=== PATIENT | male | born 1985 | race Caucasian/White ===

== ENCOUNTER 2016-09-06 07:38 | Emergency (ER) | payer OTHER ==
--- OUTSIDE RECORDS SUMMARY | 2016-09-06 08:22 | XMS REPORT | Continuity of Care Document ---
:1985 Author Organization [place] [address] Care Team Providers Name Role Phone Provider, None Per Patient Primary Care Provider Unavailable Source Comments This disclosure is being made pursuant to the [employer] program and maynot contain all information available regarding this patient.[facility] Active Allergies and Adverse Reactions Not on File Current Medications Be aware that medications may not be up to date as of this document. Alwaysverify current medications with the patient. 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) Social History Tobacco Use Types Packs/Day Years Used Date Never Assessed Last Filed Vital Signs Vital Sign Reading Time Taken Blood Pressure - - Pulse 88 09/01/2016 11:45 AM CDT Temperature 36.6 C (97.8 F) 09/01/2016 11:45 AM CDT Respiratory Rate - - Height 1.854 m (6' 1") 09/01/2016 11:45 AM CDT Weight 95.709 kg (211 lb) 09/01/2016 11:45 AM CDT Body Mass Index 27.84 09/01/2016 11:45 AM CDT Oxygen Saturation 97% 09/01/2016 11:45 AM CDT Plan of Care Health Maintenance Due Date Last Done Comments Tetanus/Pertussis (1 - Tdap) 2005 Influenza Immunization (#1) 2015 Results from Last 3 Months Not on file
--- NOTE | 2016-09-06 08:26 | ERNOTE ---
Upper Extremity HPI - General Extremities Pain Location: wrist: right - injury at work Time Seen by Provider: 09/06/16 08:07 Source: patient Exam Limitations: clinical condition - -pain - Immun/Allergies/Home Medications Immunizations: IMMUNIZATION HX Immunizations Up to Date Yes History of Influenza Vaccine No Hx Pneumococcal Vaccination Yes Allergies/Adverse Reactions: Allergies Allergy/AdvReac Type Severity Reaction Status Date / Time Antihistamines - Alkylamine Allergy Verified 09/06/16 07:57 Home Medications: HOME MEDICATIONS Ibuprofen [Motrin] 800 mg PO QID 06/08/14 [Last Taken Unknown] Naproxen [Naprosyn] 375 mg PO DAILY 09/06/16 [Last Taken Unknown] - History of Present Illness Narrative: Pt was trying to get a piece of metal out of a machine at work and it came out suddenly causing him to strike his wrist against another piece of metal Occurred: just prior to arrival Location of Incident: work Severity: moderate Method of Injury: Reports: direct blow Modifying Factors - (Improves): Reports: immobilization Modifying Factors - (Worsens): Reports: movement Other Injuries: Reports: none Review of Systems - Review of Systems Constitutional: Present: no symptoms reported EYE: Present: no symptoms reported Musculoskeletal: Present: See HPI, muscle stiffness - right long finger stiffness Neurological: Absent: numbness Endocrine: Present: no symptoms reported Hematologic/Lymphatic: Present: no symptoms reported Psych: Present: no symptoms reported - Patient's Past Medical History Patient History - Medical: Other Patient History - Cardiac/Respiratory: No pertinent hx Patient History - Cancer: No Hx of Cancer Patient History - Surgical Procedures: Appendectomy, Other Patient History - Other: None - Social History Living Situations: alone Abuse History: No History of abuse Psych History: No pertinent hx Smoking Status: Current every day smoker Alcohol Use: rarely Drug Use: none - Immunizations Immunizations Up to Date: Yes Hx Pneumococcal Vaccination: Yes History of Influenza Vaccine: No Physical Exam - Physical Exam General Appearance: Present: wd/wn, alert, mild distress Eye Exam: Normal inspection: bilateral Neck: Present: normal inspection, supple Respiratory: Present: no respiratory distress, no accessory muscle use Peripheral Pulses: N=norm/S=strong/W=weak/B=bound/A=absent: Radial (R): Normal Extremity Exam: Present: decreased range of motion - right wrist in all planes of motion due to pain. Diffuse tenderness posterior wrist. Elbow normal. . Absent: joint swelling ED Progress - Vital Signs Vital Signs: Vital Signs 09/06/16 07:48 Temperature 37.6 C H Pulse Rate 83 Respiratory 14 Rate Blood Pressure 116/83 O2 Sat by Pulse 96 Oximetry - X-Ray X-Ray #1 X-Ray: wrist Interpretation: Reviewed by me X-ray Comments: No fracture, mild STS. - Progress/Reassessment Chief Complaint: Wrist Injury/Pain Departure Clinical Impression: Contusion Qualifiers: Encounter type: initial encounter Contusion area: wrist Laterality: right Qualified Code(s): S60.211A - Contusion of right wrist, initial encounter Right wrist sprain Qualifiers: Encounter type: initial encounter Qualified Code(s): S63.501A - Unspecified sprain of right wrist, initial encounter - Departure Disposition: Home Follow Up Needed Condition: Good Instructions: Contusion, [id number], Wrist Sprain Additional Instructions: May use ibuprofen 2-3 tabs 3 times a day for 2-3 weeks as needed Referrals: So Lim ARNP [Primary Care Provider] -
[2016-09-06 09:10] VITALS: BP 122/81
== END 2016-09-06 09:12 | disposition home or self-care (01) ==
LOC: ER 07:38
DX: S60.211A Contusion of right wrist, initial encounter (principal); S63.501A Unspecified sprain of right wrist, initial encounter; W22.8XXA Striking against or struck by other objects, initial encounter; Y93.89 Activity, other specified; Y92.89 Other specified places as the place of occurrence of the external cause; Y99.0 Civilian activity done for income or pay

== ENCOUNTER 2016-10-06 00:28 | Emergency (ER) | payer OTHER ==
--- NOTE | 2016-10-06 00:41 | ERNOTE ---
Abdominal HPI - Narrative Date of Service: 10/06/16 - General Chief Complaint: Abdominal Pain Source: patient Exam Limitations: no limitations - Immun/Allergies/Home Medications Immunizatons: IMMUNIZATION HX Immunizations Up to Date Yes History of Influenza Vaccine No Hx Pneumococcal Vaccination No Allergies/Adverse Reactions: Allergies Antihistamines - Alkylamine Allergy (Verified 10/06/16 00:35) Home Medications: HOME MEDICATIONS Ibuprofen [Motrin] 1,000 mg PO QID 06/08/14 [Last Taken Unknown] Dicyclomine HCl [Bentyl] 10 - 20 mg PO TID #15 tab 10/06/16 [Last Taken Unknown] Ondansetron HCl [Zofran] 4 mg PO QID PRN #10 tablet 10/06/16 [Last Taken Unknown ] - History of Present Illness Narrative: 31 year old that ate a shrimp dinner at a friend's house earlier tonight. About 45 minutes after eating the food he began to have crampy abdominal pain, vomiting and a small amount of diarrhea. No fevers or chills. Timing: constant, intermittent Quality: mild Activities at Onset: rest Modifying Factors - (Improves): Present: other - nothing Modifying Factors - (Worsens): Absent: other Associated Symptoms: Present: denies symptoms Prior Abdominal Problems: Present: none Prior Treatment: Present: other - has seen his primary care physician for bradycadia and joint pain Review of Systems - Review of Systems Constitutional: Present: no symptoms reported EYE: Present: no symptoms reported ENT: Present: no symptoms reported Respiratory: Present: no symptoms reported Cardiology: Present: See HPI Gastrointestinal/Abdominal: Present: See HPI Genitourinary: Present: no symptoms reported Musculoskeletal: Present: joint pain - several months Skin: Present: no symptoms reported Neurological: Present: no symptoms reported Endocrine: Present: no symptoms reported Hematologic/Lymphatic: Present: no symptoms reported Psych: Present: no symptoms reported - Patient's Past Medical History Patient History - Medical: Migraines Patient History - Cardiac/Respiratory: Arrhythmias Patient History - Cancer: No Hx of Cancer Patient History - Surgical Procedures: Appendectomy Patient History - Other: None - Social History Living Situations: home Abuse History: No History of abuse Psych History: Hx of Anxiety Smoking Status: Current every day smoker Alcohol Use: rarely Drug Use: none - Immunizations Immunizations Up to Date: Yes Hx Pneumococcal Vaccination: No History of Influenza Vaccine: No Physical Exam - Physical Exam General Appearance: Present: alert Eye Exam: Normal inspection: bilateral Ears, Nose, Throat: Present: normal ENT inspection Neck: Present: normal inspection Respiratory: Present: no respiratory distress Cardiovascular/Chest: Present: regular rate, rhythm Gastrointestinal/Abdominal: Present: nontender, nondistended Back Exam: Present: normal inspection Extremity Exam: Present: normal inspection Neurological Exam: Present: alert, oriented Skin Exam: Present: normal color, warm/dry ED Progress - Vital Signs Patient's Vital Signs:: I have reviewed the patient's vital signs. Vital Signs: Vital Signs 10/06/16 00:30 Temperature 36.6 C Pulse Rate 79 Respiratory 18 Rate Blood Pressure 116/77 O2 Sat by Pulse 98 Oximetry - Progress/Reassessment Chief Complaint: Abdominal Pain Progress:: Improved Departure - Departure Clinical Impression: Food poisoning Disposition: Home self-care Condition: Fair Instructions: Food Poisoning, [id number] Language: Portuguese Additional Instructions: If you feel sicker return to the ED. Referrals: So Lim ARNP [Primary Care Provider] - Prescriptions: Dicyclomine HCl [Bentyl] 10 - 20 mg PO TID #15 tab Ondansetron HCl [Zofran] 4 mg PO QID PRN #10 tablet PRN Reason: Nausea
[2016-10-06] MEDS ORDERED: ONDANSETRON 4 MG TAB.RAPDIS PO ONE (00:51)
[2016-10-06] MEDS ORDERED: DICYCLOMINE HCL 10 MG/ML AMPUL IM ONE ×2 (00:51→00:54)
[2016-10-06] MEDS ORDERED: ONDANSETRON 4 MG TAB.RAPDIS ONE (00:54)
[2016-10-06 01:38] VITALS: BP 103/80
--- OUTSIDE RECORDS SUMMARY | 2016-10-06 02:26 | XMS REPORT | Continuity of Care Document ---
:1985 Author Organization [facility] [place] [address] Care Team Providers Name Role Phone Provider, None Per Patient Primary Care Provider Unavailable Source Comments This disclosure is being made pursuant to the [employer] program and maynot contain all information available regarding this patient.[facility] Active Allergies and Adverse Reactions Not on File Current Medications Be aware that medications may not be up to date as of this document. Alwaysverify current medications with the patient. 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
== END 2016-10-06 01:30 | disposition home or self-care (01) ==
LOC: ER 00:28
DX: T61.8X1A Toxic effect of other seafood, accidental (unintentional), initial encounter (principal); Y92.009 Unspecified place in unspecified non-institutional (private) residence as the place of occurrence of the external cause; Z72.0 Tobacco use